=== PATIENT | male | born 1990 | race Two or more races ===

== ENCOUNTER 2024-03-04 08:06 | Day surgery (SDC) | payer OTHER ==
[2024-02-26 09:28] LABS: HEMATOCRIT 43.1 % (39.0-48.0); HEMOGLOBIN 15.3 g/dL (13-16.00); MEAN CELL VOLUME 87.9 fL (80.0-100.00); MEAN CORPUSCULAR HEMOGLOBIN 31.2 pg (27.00-32.0); MEAN CORPUSCULAR HGB CONC 35.5 g/dl (32.0-36.0); PLATELET COUNT 182 K/uL (150-450); RED CELL DISTRIBUTION WIDTH 12.8 % (11.5-14.5)
[2024-02-26 09:43] LABS: PH,URINE 5.5 (5.0-8.0); URINE APPEARANCE Clear; URINE BILIRRUBIN Negative (NEGATIVE); URINE BLOOD Negative; URINE COLOR Yellow; URINE GLUCOSE Negative (NEGATIVE); URINE KETONE Trace (NEGATIVE); URINE LEUKOCYTE Negative; URINE NITRATE Negative; URINE PROTEIN Negative (NEGATIVE); URINE UROBILINOGEN 0.2 E.U./dl
[2024-02-26 09:48] LABS: URINE BACTERIA 6.2 uL (0.0-1933)
[2024-02-26 10:11] LABS: ALBUMIN 4.2 gm/dL (3.4-5.0); CALCIUM 9.2 mg/dL (8.5-10.1); CREATININE SERUM 0.89 mg/dL (0.70-1.30); GFR 97.27; INR 1.02; PARTIAL THROMBOPLASTIN TIME 28.5 SECONDS (22.0-34.0); PHOSPHOROUS 3.3 mg/dL (2.5-4.9); POTASSIUM 4.19 mEq/L (3.5-5.1); PROTHROMBIN TIME 11.1 SECONDS (9.0-11.5)
[2024-02-26 10:15] LABS: URINE CAST 0.15 uL (0.0-1.40); URINE EPITHELIAL CELLS 0.9 uL (0.0-38.8); URINE RBC 1.9 uL (0.0-20.8)
== END 2024-03-04 13:00 ==
LOC: CIR.AMB 08:06
PROVIDERS: ATTEND Otolaryngology Otology & Neurotology
DX: H80.92 Unspecified otosclerosis, left ear (principal); Z53.8 Procedure and treatment not carried out for other reasons

== ENCOUNTER 2024-03-11 05:12 | Day surgery (SDC) | payer OTHER ==
[2024-03-11] MEDS ORDERED: CLINDAMYCIN PHOSPHATE 150 MG/ML (900mg) ONE (12:46)
[2024-03-11] MEDS ORDERED: DEXAMETHASONE SODIUM PHOSPHATE 4 MG/ML VIAL ONE (12:48)
[2024-03-11] MEDS ORDERED: EPINEPHRINE HCL/PF 1 MG/ML AMPUL ONE (13:33)
[2024-03-11] MEDS ORDERED: CLEOCIN HCL300 MG PO (15:08)
[2024-03-11] MEDS ORDERED: CORTISPORIN EAR10 M1 OTIC (15:08)
[2024-03-11] MEDS ORDERED: ANTIVERT25 M2 PO (15:09)
== END 2024-03-11 17:15 | disposition home or self-care (01) ==
LOC: CIR.AMB 05:12
PROVIDERS: ATTEND Otolaryngology Otology & Neurotology
DX: H80.92 Unspecified otosclerosis, left ear (principal); H90.12 Conductive hearing loss, unilateral, left ear, with unrestricted hearing on the contralateral side; Z88.1 Allergy status to other antibiotic agents; Z88.0 Allergy status to penicillin; I25.10 Atherosclerotic heart disease of native coronary artery without angina pectoris; K76.0 Fatty (change of) liver, not elsewhere classified; H93.19 Tinnitus, unspecified ear